=== PATIENT | female | born 1970 | race Caucasian/White ===

== ENCOUNTER → 2018-08-28 | Outpatient (CLI) | payer OTHER ==
--- NOTE | 2018-08-29 11:06 | MM ---
Reason for exam: screening (asymptomatic). Last mammogram was performed 6 years and 4 months ago. Physical Findings: A clinical breast exam by your physician is recommended on an annual basis and results should be correlated with mammographic findings. MG Screening Mammo w CAD Bilateral CC and MLO view(s) were taken. Prior study comparison: April 24, 2012, bilateral digital screening mammo w/CAD. July 07, 2008, mammogram, performed at [place]. The breast tissue is heterogeneously dense. This may lower the sensitivity of mammography. Focal asymmetry central lower left breast middle third position. ASSESSMENT: Incomplete: need additional imaging evaluation, BI-RAD 0 RECOMMENDATION: Special view mammogram of the left breast. If lesion persists on supplemental views, image directed ultrasound is recommended. [facility] will attempt to contact patient to return for supplemental views and ultrasound if indicated.
== END | disposition home or self-care (01) ==
LOC: RADMAMWWP 08:05
PROVIDERS: ATTEND Family Medicine
DX: Z12.31 Encounter for screening mammogram for malignant neoplasm of breast (principal)
CPT/HCPCS: 77067

== ENCOUNTER → 2018-08-30 | Outpatient (CLI) | payer OTHER ==
--- NOTE | 2018-08-30 16:10 | MR ---
EXAMINATION TYPE: MR cspine/lspine wo con DATE OF EXAM: 08/30/2018 COMPARISON: 10/12/2015 HISTORY: Neck and back pain TECHNIQUE: Multiplanar, multisequence imaging of the cervical and lumbar spine is performed without I V contrast. FINDINGS: Cervical spine: The cervical spine vertebral bodies maintain normal vertebral body heights. There is very minimal gra de 1 anterolisthesis of C3 on C4. Multilevel disc desiccation is seen. Spinal cord signal is within n ormal limits in the cervical spine. C2-C3: No significant disc disease, spinal canal stenosis or neural foraminal narrowing. C3-C4: There is a small central disc herniation narrowing the ventral subarachnoid space and abutting the ventral thecal cord without significant mass effect. This creates mild spinal canal stenosis. No neural foraminal narrowing. C4-C5: There is a broad-based disc bulge minimally narrowing the ventral subarachnoid space creating very mild spinal canal stenosis. No neural foraminal narrowing. C5-C6: There is a left eccentric broad-based disc bulge and uncovertebral hypertrophy creating mild l eft neural foraminal narrowing and mild spinal canal stenosis. No right-sided neural foraminal narrow ing is seen. C6-C7: There is a right foraminal disc herniation superimposed upon a broad-based disc bulge, uncover tebral hypertrophy and facet arthropathy creating moderate to severe right and moderate left neural f oraminal narrowing and mild spinal canal stenosis. C7-T1: No significant spinal canal stenosis nor neural foraminal narrowing. Lumbar spine: The lumbar spine vertebral bodies maintain normal vertebral body heights and alignment. Numerous sacr al perineural cysts are seen. Conus medullaris is unremarkable in signal morphology terminating at L1 -L2. Bone marrow signal is within normal limits. L1-L2: No significant disc disease, spinal canal stenosis nor neural foraminal narrowing. L2-L3: No significant disc disease, spinal canal stenosis nor neural foraminal narrowing. L3-L4: There is a broad-based disc bulges there is flattening of the usual disc concavity posteriorly . No significant spinal canal stenosis nor neural foraminal narrowing. Mild facet arthropathy is seen . L4-L5: Ligamentum flavum buckling and facet arthropathy contribute to mild narrowing of the spinal ca nal in the transverse dimension. There is a broad-based disc bulge present without neural foraminal n arrowing bilaterally. L5-S1: There is a small central disc herniation superimposed upon a broad-based disc bulge without sp inal canal stenosis nor neural foraminal narrowing. Mild facet arthropathy is seen. IMPRESSION: 1. New small central disc herniation at L5-S1 in comparison to the prior exam of 10/12/2015. This does not create spinal canal stenosis or neural foraminal narrowing. 2. Redemonstration of multiple disc herniation throughout the cervical spine as seen on the prior of 2015 most significant at C6-C7 where there is a right foraminal disc herniation creating moderate to severe right neural foraminal narrowing and examination with degenerative change creating moderate le ft neural foraminal narrowing. 3. Multilevel disc desiccation of the cervical spine resulting in variable degrees of neural foramina l narrowing and multilevel spinal canal stenosis as described above.
== END ==
LOC: RADMRIMAIN 14:34
PROVIDERS: ATTEND Psychiatry & Neurology Neurology
DX: M48.02 Spinal stenosis, cervical region (principal); M99.71 Connective tissue and disc stenosis of intervertebral foramina of cervical region; M50.20 Other cervical disc displacement, unspecified cervical region; M47.812 Spondylosis without myelopathy or radiculopathy, cervical region; M51.27 Other intervertebral disc displacement, lumbosacral region; M46.97 Unspecified inflammatory spondylopathy, lumbosacral region
CPT/HCPCS: 72141; 72148

== ENCOUNTER → 2018-09-11 | Outpatient (CLI) | payer OTHER ==
--- NOTE | 2018-09-11 14:22 | MM ---
Reason for exam: additional evaluation requested from abnormal screening. Last mammogram was performed less than 1 month ago. Physical Findings: Nurse did not find any significant physical abnormalities on exam. MG Work Up Mamm w CAD LT Spot compression CC, spot compression MLO, and LM view(s) were taken of the left breast. Prior study comparison: August 28, 2018, bilateral MG screening mammo w CAD. April 24, 2012, bilateral digital screening mammo w/CAD. The breast tissue is extremely dense which could obscure a lesion on mammography. No suspicious abnormality. The previously seen focal asymmetry resolves on additonal views and appears as fibroglandular tissue. These results were verbally communicated with the patient and result sheet given to the patient on 09/11/18. ASSESSMENT: Negative, BI-RAD 1 RECOMMENDATION: Return to routine screening mammogram schedule for both breasts.
== END ==
LOC: RADMAMWWP 13:27
PROVIDERS: ATTEND Family Medicine
DX: R92.8 Other abnormal and inconclusive findings on diagnostic imaging of breast (principal)
CPT/HCPCS: 77065

== ENCOUNTER 2019-10-15 06:49 | Day surgery (SDC) | payer OTHER ==
[2019-10-10 15:42] VITALS: BMI 25.4
[~2019-10-15 06:49] MED LIST: LACTATED RINGERS 1,000 ML IV SCH; LIDOCAINE 1% (10MG/ML) FOR IV START INTRADERMA PRN
[2019-10-15 07:23] VITALS: TEMP 98.6
[2019-10-15] MEDS ORDERED: PROPOFOL 10 MG/ML 20 ML VIAL IV ONE (07:52)
[2019-10-15] MEDS ORDERED: LIDOCAINE 1% INJ 10MG/ML (20 ML MDV) ONE (07:52)
--- NOTE | 2019-10-15 08:15 | P.GSHP ---
History of Present Illness H&P Date: 10/15/19 Chief Complaint: GI bleed This a 41-year-old female with history of GI bleed. Patient presents today for colonoscopy.. Past Medical History Past Medical History: Hyperlipidemia Additional Past Medical History / Comment(s): migraines, TMJ, hemorrhoids, rectal bleeding, Dermatographism History of Any Multi-Drug Resistant Organisms: None Reported Past Surgical History: Section, Cholecystectomy, Hysterectomy Additional Past Surgical History / Comment(s): procedure to check for cervical cancer Past Anesthesia/Blood Transfusion Reactions: No Reported Reaction Smoking Status: Current every day smoker - Past Family History Mother Family Medical History: No Reported History Medications and Allergies Home Medications Medication Instructions Recorded Confirmed Type Butalb/APAP/Caff 50-325-40Mg 1 tab PO Q8HR PRN 10/10/19 10/15/19 History [Fioricet 50-325-40] Hydrocodone/Acetaminophen [[place] 1 tab PO BID PRN 10/10/19 10/15/19 History 10-325] Naproxen 500 mg PO BID PRN 10/10/19 10/15/19 History diphenhydrAMINE [Benadryl] 25 mg PO DIRECTED PRN 10/10/19 10/15/19 History hydrOXYzine HCL 10 mg PO TID PRN 10/10/19 10/15/19 History rOPINIRole HCL [Requip] 0.25 mg PO DAILY PRN 10/10/19 10/15/19 History tiZANidine [Zanaflex] 4 mg PO BID PRN 10/10/19 10/15/19 History Allergies Allergy/AdvReac Type Severity Reaction Status Date / Time No Known Allergies Allergy Verified 10/15/19 07:05 Surgical - Exam Vital Signs Temp Pulse Resp BP Pulse Ox 98.6 F 86 18 115/88 100 10/15/19 07:05 10/15/19 07:05 10/15/19 07:05 10/15/19 07:05 10/15/19 07:05 - General well developed, well nourished, no distress - Eyes PERRL - ENT normal pinna - Neck no masses - Respiratory normal expansion - Cardiovascular Rhythm: regular - Abdomen Abdomen: soft, non tender Assessment and Plan Assessment: GI bleed. We'll perform colonoscopy.
--- NOTE | 2019-10-15 08:18 | P.OP ---
Date of Procedure: 10/15/19 Preoperative Diagnosis: GI bleed Postoperative Diagnosis: Internal hemorrhoids Procedure(s) Performed: Colonoscopy Anesthesia: MAC Surgeon: Praveen Strong Pathology: none sent Condition: stable Disposition: PACU Description of Procedure: The patient's placed on the endoscopy table in the lateral position. She received IV sedation. Digital rectal exam was performed which revealed internal hemorrhoids. Flexible colonoscope was then placed patient anus passed throughout the entire colon. The ileocecal valve was visualized. The cecum, ascending and transverse colon appeared normal. The descending and sigmoid colon appeared normal. The scope summer back the rectum and this was normal. Scope was then withdrawn through the anus and internal hemorrhoids are noted. Scope was withdrawn for patient. There is no unsteady GI bleed.. It was presumed that her previous GI bleed was due to hemorrhoids.
[2019-10-15 08:32] VITALS: RESP 17
[2019-10-15 08:37] VITALS: BP 126/74; PULSE 63
== END 2019-10-15 09:11 | disposition home or self-care (01) ==
LOC: ORWHC2ENDO 06:49
PROVIDERS: ATTEND Surgery
DX: K64.8 Other hemorrhoids (principal); E78.5 Hyperlipidemia, unspecified; G43.909 Migraine, unspecified, not intractable, without status migrainosus; L50.3 Dermatographic urticaria; F17.210 Nicotine dependence, cigarettes, uncomplicated; Z90.49 Acquired absence of other specified parts of digestive tract; Z90.710 Acquired absence of both cervix and uterus; Z98.891 History of uterine scar from previous surgery; Z79.899 Other long term (current) drug therapy
CPT/HCPCS: 45378; J2001; J2704